=== PATIENT | male | born 1980 | race Two or more races ===

== ENCOUNTER 2018-02-07 12:23 | Emergency (ER) | payer OTHER ==
[~2018-02-07] VITALS: Ht 180.3 cm; Wt 85.2 kg
[2018-02-07 12:25] VITALS: BP 157/109
[2018-02-07] MEDS ORDERED: IBUPROFEN 200 MG TABLET ONE (12:40)
[2018-02-07] MEDS ORDERED: IBUPROFEN 200 MG TABLET PO ONE (13:00)
== END 2018-02-07 14:04 | disposition home or self-care (01) ==
LOC: ED 13:50
DX: S43.421A Sprain of right rotator cuff capsule, initial encounter (principal); W51.XXXA Accidental striking against or bumped into by another person, initial encounter; Y93.41 Activity, dancing; Y92.89 Other specified places as the place of occurrence of the external cause; Y99.8 Other external cause status
CPT/HCPCS: 99284